=== PATIENT | male | born 1955 | race Caucasian/White ===

== ENCOUNTER → 2020-04-25 | Outpatient (CLI) | payer BC ==
--- NOTE | 2020-04-25 14:38 | Diagnostic Imaging Report ---
Indication: Right foot pain Technique: 3 views right foot Comparison: none Findings: There are mild degenerative changes of the first metatarsal phalangeal joint. No acute fractures. No dislocations. The joint spaces are preserved. There is questionably a slight soft tissue defect overlying the calcaneal tuberosity. Ulcer not excludable. Impression: No acute bony trauma Possible soft tissue defect overlying the calcaneus. Correlate with clinical findings Mild degenerative changes
== END | disposition home or self-care (01) ==
LOC: RAD 09:44
DX: M25.571 Pain in right ankle and joints of right foot (principal)